=== PATIENT | female | born 1950 | race Caucasian/White ===

== ENCOUNTER 2025-02-28 06:21 | Inpatient (IN) | payer MEDICARE, OTHER, SELFPAY ==
[2025-02-28 07:04] LABS: #Basophils 0.06 10x3/uL (0.0-0.2); #Eosinophils 0.08 10x3/uL (0.0-0.7); #Monocytes 0.90 10x3/uL (0.11-0.59); #Neutrophils 10.51 10x3/uL (1.40-6.50); %Basophils 0.4 % (0.0-1.0); %Eosinophils 0.6 % (0.0-10.0); %Lymphocytes 14.6 % (21.0-51.0); %Monocytes 6.6 % (0.0-10.0); %Neutrophils 77.6 % (42.0-75.0); Hematocrit 42.2 % (36.0-47.0); Hemoglobin 13.6 g/dL (12.0-16.0); Mean Corpuscular Hemoglobin 29.0 pg (27.0-31.0); Mean Corpuscular Volume 90.0 fL (78.0-98.0); Platelet Count 194 10x3/uL (130-400); Red Blood Cell (RBC) Count 4.69 mill/uL (4.20-5.40); White Blood Cell (WBC) Count 13.56 10x3/uL (4.8-10.8)
[2025-02-28] MEDS ORDERED: Azithromycin 500 MG VIAL ONE (07:07)
[2025-02-28] MEDS ORDERED: cefTRIAXone (ROCEPHIN) 2 GM VIAL ONE (07:09)
[2025-02-28 07:14] LABS: Anion Gap 19 mmol/L (10-20); BUN (Urea Nitrogen) 15 mg/dL (9.8-20.1); Calc. Creatinine Clearance 0 mL/min (70-130); Carbon Dioxide 22 mmol/L (23-31); Chloride 104 mmol/L (98-107); Potassium 3.4 mmol/L (3.5-5.1); Sodium 142 mmol/L (136-145)
[2025-02-28 07:15] LABS: ALT (SGPT) 19 U/L (Less than 34); AST (SGOT) 24 U/L (11-34); Albumin 4.0 g/dL (3.1-4.5); Alkaline Phosphatase 131 U/L (40-110); Bilirubin, Total 0.6 mg/dL (0.3-1.2); Calcium 9.3 mg/dL (7.8-10.44); Globulin 3.1 g/dL (2.4-3.5); Glucose 175 mg/dL (83-110)
[2025-02-28] MEDS ORDERED: Albuterol 2.5 MG (0.5 mL) NEB ONE (07:31)
[2025-02-28] MEDS ORDERED: Ipratropium Bromide 2.5 ml Neb ONE (07:31)
[2025-02-28] MEDS ORDERED: Acetaminophen 325 MG TAB ONE (07:35)
[2025-02-28] MEDS ORDERED: Ondansetron PF 4 MG/2 ML Vial ONE (07:35)
[2025-02-28 08:26] LABS: Magnesium 1.6 mg/dL (1.6-2.6)
[2025-02-28 08:59] LABS: Actual Bicarbonate (HCO3v) 22.9 mEq/L (22-28); Analyzer IN Cardio ER; Base Excess -2.5 mEq/L (-2.0 to +3.0); Calcium, Ionized (venous) 1.11 mmol/L (1.16-1.32); Chloride (VBG) 103 mmol/L (98-106); Hematocrit-VBG 38 % (36.0-47.0); Hemoglobin (Hb) 12.9 g/dL (11.7-16.1); Potassium (VBG) 3.33 mmol/L (3.70-5.30); Sodium 139 mmol/L (133-146)
[2025-02-28] MEDS ORDERED: Magnesium 2 GM/50 ML BAG (IN WATER) ONE (09:00)
[2025-02-28] MEDS ORDERED: Dextrose 50% Abboject 50 ML SYRINGE SLOW IVP PRN (10:03)
[2025-02-28] MEDS ORDERED: Glucagon 1 MG/ML KIT IM PRN (10:03)
[2025-02-28] MEDS ORDERED: Senokot S 8.6-50 MG TAB PO PRN (10:03)
[2025-02-28] MEDS ORDERED: Guaifenesin DM 100-10/5 ML UDCUP PO PRN (10:03)
[2025-02-28 17:42] VITALS: BMI 24.3
[2025-02-28] MEDS: Acetaminophen 325 MG TAB PO PRN (18:09)
[2025-02-28] MEDS: metFORMIN 500 MG TAB PO SCH (18:09)
[2025-03-01 05:34] LABS: #Basophils Less than 0.03 10x3/uL (0.0-0.2); #Eosinophils Less than 0.03 10x3/uL (0.0-0.7); #Monocytes 0.66 10x3/uL (0.11-0.59); #Neutrophils 18.74 10x3/uL (1.40-6.50); %Basophils 0.1 % (0.0-1.0); %Eosinophils 0.0 % (0.0-10.0); %Lymphocytes 4.1 % (21.0-51.0); %Monocytes 3.2 % (0.0-10.0); %Neutrophils 92.0 % (42.0-75.0); Hematocrit 35.1 % (36.0-47.0); Hemoglobin 11.2 g/dL (12.0-16.0); Mean Corpuscular Hemoglobin 29.2 pg (27.0-31.0); Mean Corpuscular Volume 91.6 fL (78.0-98.0); Platelet Count 171 10x3/uL (130-400); Red Blood Cell (RBC) Count 3.83 mill/uL (4.20-5.40); White Blood Cell (WBC) Count 20.39 10x3/uL (4.8-10.8)
[2025-03-01 05:53] LABS: Anion Gap 13 mmol/L (10-20); BUN (Urea Nitrogen) 13 mg/dL (9.8-20.1); Calc. Creatinine Clearance 79 mL/min (70-130); Calcium 8.5 mg/dL (7.8-10.44); Carbon Dioxide 20 mmol/L (23-31); Chloride 114 mmol/L (98-107); Glucose 194 mg/dL (83-110); Magnesium 1.9 mg/dL (1.6-2.6); Potassium 4.6 mmol/L (3.5-5.1); Sodium 142 mmol/L (136-145)
[2025-03-01] MEDS: cefTRIAXone\\ROCEPHIN 1 GM in Sodium Chloride 0.9% 100 ML IVPB SCH (08:46)
[2025-03-01] MEDS: Enoxaparin 40 MG (0.4 mL) SYRINGE SC SCH (08:47)
[2025-03-01] MEDS: Pantoprazole 40 MG DR.TAB PO SCH (08:47)
[2025-03-01] MEDS: Losartan 25 MG TAB PO SCH (08:47)
[2025-03-01] MEDS: Azithromycin 500 MG in Sodium Chloride 0.9% 250 ML 250 ML IVPB SCH (09:37)
[2025-03-01] MEDS ORDERED: Acetaminophen 325 MG TAB PO PRN (12:55)
[2025-03-01 15:48] VITALS: BMI 24.3
[2025-03-01 16:38] VITALS: BP 131/62; TEMP 98
[2025-03-02] MEDS ORDERED: predniSONE 20 MG TAB PO SCH (08:00)
== END 2025-03-01 18:52 | disposition home or self-care (01) | DRG 189 ==
LOC: ERS 06:21 → ERHOLD 09:42 → 2NO 17:35
PROVIDERS: ADMIT Student in an Organized Health Care Education/Training Program; ATTEND Student in an Organized Health Care Education/Training Program
DX: J96.01 Acute respiratory failure with hypoxia (principal); J44.1 Chronic obstructive pulmonary disease with (acute) exacerbation; E87.20 Acidosis, unspecified; E11.9 Type 2 diabetes mellitus without complications; I10 Essential (primary) hypertension; E03.9 Hypothyroidism, unspecified; E78.5 Hyperlipidemia, unspecified; Z86.73 Personal history of transient ischemic attack (TIA), and cerebral infarction without residual deficits; Z90.49 Acquired absence of other specified parts of digestive tract; Z98.891 History of uterine scar from previous surgery; Z98.890 Other specified postprocedural states
CPT/HCPCS: 36415; 36416; 71045; 80048; 80053; 82805; 83605; 83735; 83880; 84443; 84484; 85025; 87040; 87428; 93005; 94640; 96365; 96366; 96367; 96375; J0456; J0696; J1650; J1815; J2405; J2919; J3475; J7030; J7050; J7611; J7620; J7626; J7644